=== PATIENT | female | born 2000 | race Caucasian/White ===

== ENCOUNTER 2024-08-23 10:07 | Emergency (ER) | payer OTHER ==
[2024-08-23] MEDS: KETOROLAC 15 MG/ML 1 ML VIAL IVP STA (10:42)
[2024-08-23] MEDS: ONDANSETRON 4 MG/2 ML VIAL IVP STA (10:42)
[2024-08-23] MEDS: SODIUM CHLORIDE 0.9% 1,000 ML IV STA (10:46)
[2024-08-23 10:49] LABS: Basophils # (A) 0.1 k/uL (0-0.2); Basophils % (A) 0 %; Eosinophils % (A) 0 %; HCT 36.6 % (34.0-46.0); HGB 12.4 gm/dL (11.4-16.0); Lymphocytes # (A) 1.5 k/uL (1.0-4.8); Lymphocytes % (A) 10 %; MCH 31.8 pg (25.0-35.0); MCV 93.8 fL (80.0-100.0); Mean Platelet Volume 8.4; Monocytes # (A) 0.6 k/uL (0-1.0); Monocytes % (A) 4 %; Neutrophils # (A) 13.3 k/uL (1.3-7.7); Neutrophils % (A) 86 %; Platelet Count 342 k/uL (150-450); RDW 12.8 % (11.5-15.5); WBC 15.5 k/uL (3.8-10.6)
--- NOTE | 2024-08-23 10:57 | ED ---
Abdominal Pain HPI - General Chief Complaint: Abdominal Pain Stated Complaint: Abd Pain Time Seen by Provider: 08/23/24 10:57 Source: patient, EMS, RN notes reviewed Mode of arrival: EMS Limitations: no limitations - History of Present Illness Initial Comments: 24-year-old female presented to the ER with a chief complaint of abdominal pain and dizziness. Patient is . Patient reports a past medical history significant of anemia after 2 year ago. Not currently on any iron supplements. She states around midnight last night she started to experience a sharp abdominal discomfort. She believes she is constipated but states her last bowel movement was around 10 AM this morning. She does state the pain makes her feel dizzy and lightheaded. She has not taken for anything for pain at this time. She denies any vaginal bleeding or discharge. Denies any vomiting but admits to nausea. No fevers. - Related Data Home Medications Medication Instructions Recorded Confirmed No Known Home Medications 08/23/24 08/23/24 Allergies Allergy/AdvReac Type Severity Reaction Status Date / Time No Known Allergies Allergy Verified 08/23/24 12:27 Review of Systems ROS Statement: Those systems with pertinent positive or pertinent negative responses have been documented in the HPI. ROS Other: All systems not noted in ROS Statement are negative. Past Medical History Past Medical History: No Reported History Additional Past Surgical History / Comment(s): Vaginal Past Psychological History: No Psychological Hx Reported Smoking Status: Current every day smoker, Vaper Past Alcohol Use History: Occasional Past Drug Use History: None Reported General Exam Limitations: no limitations General appearance: alert, in no apparent distress Respiratory exam: Present: normal lung sounds bilaterally. Absent: respiratory distress, wheezes, rales, rhonchi, stridor Cardiovascular Exam: Present: regular rate, normal rhythm, normal heart sounds. Absent: systolic murmur, diastolic murmur, rubs, gallop, clicks GI/Abdominal exam: Present: soft, tenderness (generalized. Mild guarding), normal bowel sounds Neurological exam: Present: alert, oriented X3, CN II-XII intact Skin exam: Present: warm, dry, intact, normal color. Absent: rash Course Vital Signs 08/23/24 08/23/24 08/23/24 10:09 13:48 15:31 Temperature 98.0 F 98.3 F Pulse Rate 95 84 99 Respiratory 16 18 18 Rate Blood Pressure 98/65 113/51 99/52 O2 Sat by Pulse 99 100 100 Oximetry - Reevaluation(s) Reevaluation #1: 08/23/24 15:24 Case discussed with environmental sampler BEAM HOUSE INSPECTOR, Dr. Stallworth, who advised on outpatient follow-up as patient is currently stable. Medical Decision Making - Medical Decision Making Was pt. sent in by a medical professional or institution (, PA, WALL COVERING CONTRACTOR, urgent care, hospital, or senior living...) When possible be specific @ -No Did you speak to anyone other than the patient for history (EMS, parent, family, police, friend...)? What history was obtained from this source @ -No Did you review nursing and triage notes (agree or disagree)? Why? @ -I reviewed and agree with nursing and triage notes Were old charts reviewed (outside hosp., previous admission, EMS record, old EKG, old radiological studies, urgent care reports/EKG's, senior living records)? Report findings @ -No old charts were reviewed Differential Diagnosis (chest pain, altered mental status, abdominal pain women, abdominal pain men, vaginal bleeding, weakness, fever, dyspnea, syncope, headache, dizziness, GI bleed, back pain, seizure, CVA, palpatations, mental health, musculoskeletal)? @ -Differential Abdominal Pain Women: Appendicitis, Cholecystitis, diverticulosis, ischemic bowel, pancreatitis, hepatitis, UTI, gastroenteritis, AAA, incarcerated hernia, bowel obstruction, constipation, inflammatory bowel, hepatitis, peptic ulcer disease, splenic infarction, perforated viscus, vulvitis, ovarian torsion, PID, kidney stone, placenta abruption, this is not meant to be an all-inclusive list EKG interpreted by me (3pts min.). @ -None done X-rays interpreted by me (1pt min.). @ -None done CT interpreted by me (1pt min.). @ -CT abdomen pelvis showing high density of free fluid in the abdomen suggested of blood products. U/S interpreted by me (1pt. min.). @ -Transvaginal ultrasound showed an indeterminant heterogeneous masslike region of the posterior cul-de-sac measuring 6.2 x 4.2 x 8.9 cm. Questionable internal color Doppler flow. Gallbladder ultrasound showing trace ascites. No other acute process. What testing was considered but not performed or refused? (CT, X-rays, U/S, labs)? Why? @ -None What meds were considered but not given or refused? Why? @ -None Did you discuss the management of the patient with other professionals (professionals i.e. , PA, WALL COVERING CONTRACTOR, lab, RT, psych nurse, psych social worker, distance learning program coordinator, teacher, wildlife conservation officer, rn field case manager)? Give summary @ -Yes, case was discussed in detail including laboratory results, imaging results and patient's clinical status/presentation with on-call BEAM HOUSE INSPECTOR, Dr. Stallworth who advised on outpatient management and follow-up as patient is currently stable. Was smoking cessation discussed for >3mins.? @ -No Was critical care preformed (if so, how long)? @ -No Were there social determinants of health that impacted care today? How? (Homelessness, low income, unemployed, alcoholism, drug addiction, transportation, low edu. Level, literacy, decrease access to med. care, assisted, rehab)? @ -No Was there de-escalation of care discussed even if they declined (Discuss DNR or withdrawal of care, Hospice)? DNR status @ -No What co-morbidities impacted this encounter? (DM, HTN, Smoking, COPD, CAD, Cancer, CVA, ARF, Chemo, Hep., AIDS, mental health diagnosis, sleep apnea, morbid obesity)? @ -None Was patient admitted / discharged? Hospital course, mention meds given and route, prescriptions, significant lab abnormalities, going to OR and other per tinent info. @ -Discharge. 24-year-old female presenting to the ER via EMS with a chief complaint of abdominal pain. History and physical exam completed. Vitals stable. Patient in no signs of acute distress nontoxic-appearing. Generalized abdominal tenderness, normal bowel sounds. Patient's abdomen is mildly hard and patient is guarding with abdominal muscles. No rebound tenderness. Laboratory studies obtained showing a leukocytosis of 15.5 with a left shift. Stable hemoglobin at 12.4. CMP unremarkable. Serum hCG less than 2.4. Urinalysis without evidence of infection. Gallbladder ultrasound initially obtained and showing no acute process but trace ascites. CT abdomen pelvis ordered at that time showing high density of free fluid in the abdomen suggestive of blood products. CT recommending transvaginal ultrasound which showed an indeterminate heterogeneous masslike region of the posterior cul-de-sac with questionable internal color Doppler flow. Imaging findings, laboratory results and patient's clinical appearance discussed with on-call BEAM HOUSE INSPECTOR, Dr. Stallworth. She advised on outpatient follow-up and management as patient is currently stable. Patient given IV fluids, Zofran, Toradol and Dilaudid for pain control in the ER, with improvement. Upon reevaluation, patient resting comfortably in exam room no signs of acute distress. Patient reporting her pain is a 2 out of 10 and she feels stable for discharge. I advised patient to take OTC Ibuprofen for pain control outpatient. Strict return parameters discussed. Patient discharged in stable condition with follow-up to PCP. Patient verbally expressed understanding and agreement with care plan. Case discussed with ED attending, Dr. Stallworth. Undiagnosed new problem with uncertain prognosis? @ -No Drug Therapy requiring intensive monitoring for toxicity (Heparin, Nitro, Insulin, Cardizem)? @ -No Were any procedures done? @ -No Diagnosis/symptom? @ -Hemorrhagic cyst Acute, or Chronic, or Acute on Chronic? @ -Acute Uncomplicated (without systemic symptoms) or Complicated (systemic symptoms)? @ -Uncomplicated Side effects of treatment? @ -No Exacerbation, Progression, or Severe Exacerbation? @ -No Poses a threat to life or bodily function? How? (Chest pain, USA, NC, pneumonia, PE, COPD, DKA, ARF, appy, cholecystitis, CVA, Diverticulitis, Homicidal, Suicidal, threat to staff... and all critical care pts) @ -No - Lab Data Result diagrams: 08/23/24 10:41 08/23/24 10:41 Lab Results 08/23/24 08/23/24 08/23/24 Range/Units 10:41 10:41 10:41 WBC 15.5 H (3.8-10.6) k/uL RBC 3.90 (3.80-5.40) m/uL Hgb 12.4 (11.4-16.0) gm/dL Hct 36.6 (34.0-46.0) % MCV 93.8 (80.0-100.0) fL MCH 31.8 (25.0-35.0) pg MCHC 34.0 (31.0-37.0) g/dL RDW 12.8 (11.5-15.5) % Plt Count 342 (150-450) k/uL MPV 8.4 Neutrophils % 86 % Lymphocytes % 10 % Monocytes % 4 % Eosinophils % 0 % Basophils % 0 % Neutrophils # 13.3 H (1.3-7.7) k/uL Lymphocytes # 1.5 (1.0-4.8) k/uL Monocytes # 0.6 (0-1.0) k/uL Eosinophils # 0.0 (0-0.7) k/uL Basophils # 0.1 (0-0.2) k/uL Sodium 135 L (137-145) mmol/L Potassium 4.4 (3.5-5.1) mmol/L Chloride 106 (98-107) mmol/L Carbon Dioxide 24 (22-30) mmol/L Anion Gap 5 mmol/L BUN 13 (7-17) mg/dL Creatinine 0.68 (0.52-1.04) mg/dL Est GFR (CKD-EPI)AfAm >90 (>60 ml/min/1.73 sqM) Est GFR (CKD-EPI)NonAf >90 (>60 ml/min/1.73 sqM) Glucose 108 H (74-99) mg/dL Plasma Lactic Acid Jan 1.1 (0.7-2.0) mmol/L Calcium 9.1 (8.4-10.2) mg/dL Total Bilirubin 1.0 (0.2-1.3) mg/dL AST 16 (14-36) U/L ALT 14 (4-34) U/L Alkaline Phosphatase 43 (38-126) U/L Total Protein 6.6 (6.3-8.2) g/dL Albumin 4.0 (3.5-5.0) g/dL Amylase 83 (30-110) U/L Lipase 112 (23-300) U/L HCG, Quant mIU/mL Urine Color Urine Appearance (Clear) Urine pH (5.0-8.0) Ur Specific [place] (1.001-1.035) Urine Protein (Negative) Urine Glucose (UA) (Negative) Urine Ketones (Negative) Urine Blood (Negative) Urine Nitrite (Negative) Urine Bilirubin (Negative) Urine Urobilinogen (<2.0) mg/dL Ur Leukocyte Esterase (Negative) Urine RBC (0-5) /hpf Urine WBC (0-5) /hpf Ur Squamous Epith Cells (0-4) /hpf Urine Mucus (None) /hpf Urine HCG, Qual (Not Detectd) 08/23/24 08/23/24 08/23/24 Range/Units 10:41 11:52 11:52 WBC (3.8-10.6) k/uL RBC (3.80-5.40) m/uL Hgb (11.4-16.0) gm/dL Hct (34.0-46.0) % MCV (80.0-100.0) fL MCH (25.0-35.0) pg MCHC (31.0-37.0) g/dL RDW (11.5-15.5) % Plt Count (150-450) k/uL MPV Neutrophils % % Lymphocytes % % Monocytes % % Eosinophils % % Basophils % % Neutrophils # (1.3-7.7) k/uL Lymphocytes # (1.0-4.8) k/uL Monocytes # (0-1.0) k/uL Eosinophils # (0-0.7) k/uL Basophils # (0-0.2) k/uL Sodium (137-145) mmol/L Potassium (3.5-5.1) mmol/L Chloride (98-107) mmol/L Carbon Dioxide (22-30) mmol/L Anion Gap mmol/L BUN (7-17) mg/dL Creatinine (0.52-1.04) mg/dL Est GFR (CKD-EPI)AfAm (>60 ml/min/1.73 sqM) Est GFR (CKD-EPI)NonAf (>60 ml/min/1.73 sqM) Glucose (74-99) mg/dL Plasma Lactic Acid Jan (0.7-2.0) mmol/L Calcium (8.4-10.2) mg/dL Total Bilirubin (0.2-1.3) mg/dL AST (14-36) U/L ALT (4-34) U/L Alkaline Phosphatase (38-126) U/L Total Protein (6.3-8.2) g/dL Albumin (3.5-5.0) g/dL Amylase (30-110) U/L Lipase (23-300) U/L HCG, Quant <2.4 mIU/mL Urine Color Yellow Urine Appearance Cloudy H (Clear) Urine pH 6.0 (5.0-8.0) Ur Specific [place] 1.027 (1.001-1.035) Urine Protein Trace H (Negative) Urine Glucose (UA) Negative (Negative) Urine Ketones Trace H (Negative) Urine Blood Negative (Negative) Urine Nitrite Negative (Negative) Urine Bilirubin Negative (Negative) Urine Urobilinogen <2.0 (<2.0) mg/dL Ur Leukocyte Esterase Negative (Negative) Urine RBC 3 (0-5) /hpf Urine WBC 2 (0-5) /hpf Ur Squamous Epith Cells 2 (0-4) /hpf Urine Mucus Many H (None) /hpf Urine HCG, Qual Not Detected (Not Detectd) - Radiology Data Radiology results: report reviewed, image reviewed Disposition Clinical Impression: Hemorrhagic cyst Disposition: HOME SELF-CARE Condition: Stable Instructions (If sedation given, give patient instructions): Ovarian Cyst (ED) Additional Instructions: Follow-up with BEAM HOUSE INSPECTOR in the next 1-2 days. Return to the ER for any new or worsening symptoms. Is patient prescribed a controlled substance at d/c from ED?: No Referrals: None,Stated [Primary Care Provider] - 1-2 days Acacia Stallworth DO [Doctor of Osteopathic Medicine] - 1-2 days Time of Disposition: 15:24
[2024-08-23 11:18] LABS: ALT 14 U/L (4-34); AST 16 U/L (14-36); African American GFR (CKD) >90 (>60 ml/min/1.73 sqM); Alkaline Phosphatase 43 U/L (38-126); Amylase 83 U/L (30-110); Anion Gap 5 mmol/L; Blood Urea Nitrogen 13 mg/dL (7-17); Calcium 9.1 mg/dL (8.4-10.2); Carbon Dioxide 24 mmol/L (22-30); Chloride 106 mmol/L (98-107); Glucose 108 mg/dL (74-99); Lipase 112 U/L (23-300); Non-African American GFR(CKD) >90 (>60 ml/min/1.73 sqM); Potassium 4.4 mmol/L (3.5-5.1); Sodium 135 mmol/L (137-145); Total Protein 6.6 g/dL (6.3-8.2)
[2024-08-23 11:58] LABS: Appearance,Urine Cloudy (Clear); Bilirubin,Urine Negative (Negative); Blood,Urine Negative (Negative); Color,Urine Yellow; Glucose,Urine (UA) Negative (Negative); Ketones,Urine Trace (Negative); Leukocyte Esterase,Urine Negative (Negative); Mucus,Urine Many /hpf; Nitrite,Urine Negative (Negative); Protein,Urine Trace (Negative); RBC,Urine 3 /hpf (0-5); Specific Gravity,Urine 1.027 (1.001-1.035); Squamous Epithelial Cell,Urine 2 /hpf (0-4); Urobilinogen,Urine <2.0 mg/dL (<2.0); WBC,Urine 2 /hpf (0-5)
--- NOTE | 2024-08-23 12:06 | US ---
EXAMINATION TYPE: US gallbladder DATE OF EXAM: 08/23/2024 COMPARISON: NONE CLINICAL INDICATION: Female, 24 years old with history of RUQ abd pain; TECHNIQUE: Grayscale and color Doppler imaging of the right upper quadrant was performed. FINDINGS: EXAM MEASUREMENTS: Liver Length: 13.3 cm Gallbladder Wall: 0.2 cm CBD: 0.3 cm Right Kidney: 10.4 x 3.8 x 4.2 cm Pancreas: tail limited by overlying midline bowel gas Liver: wnl Gallbladder: wnl Evidence for sonographic Ashton's sign: no CBD: wnl Right Kidney: wnl Small amount of fluid seen in RUQ IMPRESSION: 1. No evidence for acute process. 2. Trace ascites. [facility], , 08/23/2024 12:03 PM
[2024-08-23] MEDS: HYDROmorphone 0.5 MG/0.5 ML SYRINGE IVP STA (12:30)
--- NOTE | 2024-08-23 13:24 | CT ---
EXAMINATION TYPE: CT abdomen pelvis w con DATE OF EXAM: 08/23/2024 1:03 PM COMPARISON: CT abdomen pelvis most recent from CLINICAL INDICATION: Female, 24 years old with history of abd pain; Abdominal pain TECHNIQUE: Axial CT abdomen pelvis w con;Sagittal and coronal reformats were created on a separate w orkstation. Contrast used:100 ml mL of Isovue 370 with IV Contrast, (none if empty) Oral contrast used: without Oral Contrast (none if empty) CT DLP: 423.9 mGycm, Automated exposure control for dose reduction was used. FINDINGS: LOWER CHEST: Unremarkable ABDOMEN LIVER: Unremarkable GALLBLADDER AND BILE DUCTS: Unremarkable. PANCREAS: Unremarkable. SPLEEN: Unremarkable. ADRENAL GLANDS: Unremarkable. KIDNEYS AND URETERS: No evidence of hydronephrosis or renal calculus. The ureters are unremarkable. Simple appearing bilateral renal cysts. PELVIS BLADDER: No evidence for wall thickening or mass given limitations of exam. REPRODUCTIVE: Arcuate morphology to the uterus fundus. Multiple ovary follicles are seen bilaterally patent around the bloody free fluid. ABDOMEN & PELVIS STOMACH AND BOWEL: No evidence of bowel obstruction. The appendix is not definitively visualized. PERITONEUM/RETROPERITONEUM: No evidence of pneumoperitoneum. Moderate high density free fluid through out the abdomen measuring up to 50 Hounsfield units in the pelvis. LYMPH NODES: No gross evidence for lymphadenopathy. SOFT TISSUE/ABDOMINAL WALL: Unremarkable IMPRESSION: High density free fluid in the abdomen suggestive of blood products. Correlate for hemorrhagic follic le. Correlate with serum beta hCG to exclude ectopic . Consider transvaginal pelvic ultrasou nd with Doppler imaging of the ovaries. [facility], , 08/23/2024 1:22 PM
[2024-08-23 13:52] VITALS: RESP 18
--- NOTE | 2024-08-23 14:36 | US ---
EXAMINATION TYPE: US transvaginal DATE OF EXAM: 08/23/2024 COMPARISON: NONE CLINICAL INDICATION: Female, 24 years old with history of abnormal CT; TECHNIQUE: Grayscale and color Doppler ultrasound evaluation of the pelvis was performed. Transabdominal grayscale sonographic images of the pelvis were acquired. Transvaginal sonographic im ages were medically necessary to better assess the following anatomy: Doppler imaging: Not performed. FINDINGS: EXAM MEASUREMENTS: Uterus: 9.6 x 4.3 x 5.1 cm Endometrial Stripe: 1.2 cm Right Ovary: Not well visualized due to shadowing bowel gas and extensive fluid. Left Ovary: Not well visualized due to shadowing bowel gas and free fluid. 1. Uterus: Anteverted mildly heterogeneous. 2. Endometrium: Unremarkable. 3. Right Ovary: Obscured by overlying bowel gas 4. Left Ovary: Obscured by overlying bowel gas 5. Bilateral Adnexa: Obscured by overlying bowel gas 6. Posterior cul-de-sac: Indeterminate heterogeneous complex masslike region in the posterior cul-de -sac of the pelvis measuring 6.2 x 4.2 x 8.9 cm. Questionable internal color Doppler flow within this lesion. Moderate volume diffuse mild complex free fluid throughout the visualized pelvis. IMPRESSION: Indeterminate heterogeneous masslike region in the posterior cul-de-sac measuring 6.2 x 4.2 x 8.9 cm. Questionable internal color Doppler flow within this mass like region. Recommend correlation with be ta hCG levels to exclude large ruptured ectopic . Large complex fluid collection/hematoma ve rsus hemorrhagic cyst would be another differential diagnostic consideration. ELECTROENCEPHALOGRAPH TECHNICIAN consultation rec ommended as well and follow-up imaging as clinically indicated. [facility], , 08/23/2024 2:34 PM
[2024-08-23 15:49] VITALS: BP 99/52; PULSE 99; TEMP 98.3
== END 2024-08-23 15:49 | disposition home or self-care (01) ==
LOC: EC 10:07
DX: M27.49 Other cysts of jaw (principal); R18.8 Other ascites; F17.290 Nicotine dependence, other tobacco product, uncomplicated
CPT/HCPCS: 36415; 80053; 82150; 83605; 83690; 85025; 81001; 81025; 84702; 76830; 76705; 74177; 99285; 96374; 96375; 96361; J2405; J1885; J1171; Q9967